=== PATIENT | male | born 1970 | race Caucasian/White ===

== ENCOUNTER 2019-07-13 15:27 | Observation (INO) | payer OTHER, SELFPAY ==
[2019-07-13] VITALS (9 sets, daily range): BP systolic 136–210; BP diastolic 24–127; PULSE 70–98; RESP 17–24; TEMP 36.3–37.2; O2SAT 94–98; BMI 29.2; BMI 30.5
--- NOTE | 2019-07-13 15:32 | ED.RN ---
CALLED FOR EKG IN TRIAGE
--- NOTE | 2019-07-13 15:55 | EKG12_ITS ---
Test Reason : CP Blood Pressure : / mmHG Vent. Rate : 083 BPM Atrial Rate : 083 BPM P-R Int : 160 ms QRS Dur : 122 ms QT Int : 350 ms P-R-T Axes : 023 086 033 degrees QTc Int : 411 ms Normal sinus rhythm RSR' or QR pattern in V1 suggests right ventricular conduction delay Left ventricular hypertrophy with QRS widening Abnormal ECG Confirmed by MERARI MAN, EMELI ([id number]), clinical editor STONEY LOPEZ ([id number]) on 07/16/2019 10:53:35 AM Referred By: Naga Prieto Confirmed By:EMELI GAGE MD
--- NOTE | 2019-07-13 15:55 | RAD_ITS ---
STUDY: X-RAY CHEST REASON FOR EXAM: Male, 48 years old. Left chest pain TECHNIQUE: AP portable COMPARISON: None. FINDINGS: There is mild discoid atelectasis in left lower lobe and minor scarring or atelectasis at the right base.. There is no demonstrated pleural abnormality. Normal size heart. Normal mediastinum and tony. Normal visualized pulmonary arteries. Normal visualized aortic arch and descending thoracic aorta. Normal visualized thoracic spine. Normal visualized ribs, clavicles, and shoulders. There is no demonstrated abnormality of the visualized soft tissue structures of the upper abdomen. RAD/Chest 1 View (Portable) IMPRESSION: Discoid atelectasis in left lower lobe and minor scarring or atelectasis at the right base Electronically Signed: Jose Hayes MD at 16:38 EDT , Service support ,
--- NOTE | 2019-07-13 15:58 | ED.DCSUM_ITS ---
- ER Visit Summary Date of Service: 07/13/19 Chief Complaint: Chest pain History of Present Illness: The patient is a 48 M presenting with chest pain. Patient has had intermittent chest pain throughout the week. He states today it got much worse. He states it is worsened with exertion and deep breathing. He has associated shortness of breath, diaphoresis. He denies nausea or vomiting. He denies injury. Denies PE/DVT risk factors. He is a smoker, denies other CAD risk factors. No other complaints. Physical Examination: Blood pressure one 210/127. Patient is afebrile. Alert no acute distress. HEENT exam is unremarkable. Neck is supple. Lungs are clear and equal bilaterally. Chest is nontender. Heart is regular rate and rhythm. Abdomen is soft nontender nondistended. Extremities are unremarkable. Skin is warm and dry. No focal neurologic deficit. Remainder of exam is unremarkable. Emergency Department Course and Treatment: Patient was given aspirin, morphine, Zofran. EKG is sinus rate of 83 with LVH. Chest x-ray shows discoid atelectasis in left lower lobe and minor scarring or atelectasis at the right base. CBC normal except for hemoglobin 18.5. Chemistries normal except for glucose 216. Troponin is negative. D-dimer negative. Patient is resting comfortably on reevaluation. Discussed with the hospitalist for observation. Disposition: Observation Impression: Chest pain This note was generated with [employer] dictation software. It may contain incorrect words, spelling, and punctuation that were not noted in review of the chart prior to signing ED Disposition - Plan for ED Patient: Referrals: Tiffanie Tubbs [Primary Care Provider] -
--- NOTE | 2019-07-13 16:16 | NURSING ---
NO OLD EKGS
[2019-07-13 16:20] LABS: Absolute Neutrophil Count 5.9 X10^3/uL (2.0-7.7); Basophil# 0.07 X10^3/uL; Basophil% 0.7 % (0-1); Eosinophils% 2.1 % (0-5); Hematocrit 51.8 % (40-54); Mean Corp Hgb Conc 35.7 g/dL (32-36); Mean Corpuscular Hgb 35.8 pg (27.0-32.0); Mean Corpuscular Volume 100.2 fL (80-94); Mean Platelet Vol. 9.2 fl (6.2-12.0); Monocyte# 0.75 X10^3/uL; Monocyte% 7.8 % (0-10); NRBC Flagged by Analyzer 0 % (0-5); Neutrophil # 5.86 X10^3/uL (2.7-7.7); Neutrophil % 60.9 % (47-70); Platelet Count 207 K/mm3 (150-450); RBC Distribution Width CV 11.4 % (11.6-14.6); RBC Distribution Width SD 42.5 fl (35.1-43.9); Red Blood Count 5.17 M/mm3 (4.6-6.2); White Blood Count 9.6 K/mm3 (4.4-11.0)
[2019-07-13] MEDS: Morphine 4 MG/ML Syringe IV (16:27)
[2019-07-13] MEDS: Aspirin 81 MG TAB.CHEW 324 MG PO (16:27)
[2019-07-13] MEDS: Ondansetron 4 MG/2 ML Vial IV (16:27)
[2019-07-13 16:30] LABS: Differential Indicated SCAN CRITERIA MET; POSITIVE COUNT NO; POSITIVE DIFFERENTIAL NO; POSITIVE MORPHOLOGY NO
--- NOTE | 2019-07-13 16:35 | ED.RN ---
LAB CALLS WITH CRITICAL RESULT, HMG 18.5, DR. DÍAZ MADE AWARE.
[2019-07-13 16:41] LABS: Anion Gap 7 (5-15); BUN 8 mg/dL (7-18); BUN/Creat Ratio 10.3 RATIO (10-20); Calcium,Total 9.3 mg/dL (8.5-10.1); Chloride 104 mmol/L (98-107); Creatinine, Serum 0.78 mg/dL (0.70-1.30); EST Glomerular Filtration Rate 114 mL/min (>60); Est Glom Filt Rate - Afr Amer 138 mL/min (>60); Glucose 216 mg/dL (74-106); Potassium 3.8 mmol/L (3.5-5.1); Sodium Level 136 mmol/L (136-145)
[2019-07-13 17:04] LABS: Anisocytosis 1+; Macrocytosis 1+; Platelet Estimate ADEQUATE (ADEQ); Red Cell Morphology N CHROM NORMAL (NORM C&C)
--- NOTE | 2019-07-13 17:06 | NURSING ---
KEVINU OBS HELEN STROUD
[2019-07-13 17:24] LABS: Hemoglobin 18.5 g/dL (13.0-16.5)
--- NOTE | 2019-07-13 17:28 | PCM.HP.STD ---
Problem List (1) Chest pain Status: Acute (2) HTN (hypertension) Status: Chronic (3) Diabetes Status: Chronic Qualifiers: Diabetes mellitus type: type 2 (4) Nicotine abuse Status: Chronic History of Present Illness Date of Admission: 07/13/19 Chief Complaint: chest pain The patient is a 48 year old M who has no active medical diagnoses who does not regularly see a physician, who smokes about 1 ppd and drinks about 6 beers per day who presented to the ER with c/o chest pain. This began about a week ago and he states he has been constant since then. It is a left sided sharp pain that is located at the level of the lowest rib. He drives most of the day and has noticed it when he gets in and out of the car, when he turns his body, and when he takes a deep breath. He also has reflux for which he has been taking prilosec that is worse with eating and sometimes causes vomiting. He denies SOB, diaphoresis, radiation, LH/Dizziness. He denies immediate fm hx of coronary disease. In the ER his blood sugar is siginficantly elevated at 216, BP is elevated highest was 210/127. D dimer was negative, troponin was negative, EKG was negative, and CXR was negative. He plans to stay overnight for a stress test in the AM. [] Past Medical History Past Medical History (Chronic Problems): Chronic Problems HTN (hypertension) (Chronic) Diabetes (Chronic) Nicotine abuse (Chronic) Allergies Penicillins Allergy (Verified 07/13/19 15:30) Unknown Home Medications: Ambulatory Orders Medication Instructions Recorded Omeprazole [Prilosec] 20 mg PO DAILY 07/13/19 Surgical History: no surgical history Psychiatric History: No pertinent psych hx Lives: Spouse/ Significant Other Smoking Status: Current every day smoker Tobacco Use: Cigarettes Alcohol: Heavy Drugs: None - *Family History Maternal History Items: No pertinent history Paternal History Items: - - suicide Review of Systems Constitutional: Denies: Chills, Fever, Weight Change HEENT: Denies: Head Aches, Sinus Congestion, Sinus Drainage Cardiovascular: Reports: Chest Pain. Denies: Chest Pressure, Chest Tightness, Edema, Heaviness, Light Headedness, Palpitations, Syncope Respiratory: Denies: Cough, Shortness of breath at rest, Sputum production Gastrointestinal: Denies: Abdominal Pain, Nausea, Vomiting Genitourinary: Denies: Dysuria Musculoskeletal: Denies: Joint Pain, Joint Tenderness Skin: Denies: Rash, Wounds Neurological: Denies: Numbness, Tingling, Focal weakness Psychiatric: Denies: Anxiety, Depression, Homicidal Ideations, Suicidal Ideations Hematologic/ Lymphatic: Denies: Easy Bruising, Easy Bleeding VTE Information - Inpt Only VTE Present on Admission: No VTE Mechan Device Prophylaxis: None VTE Pharm Prophylaxis ordered?: Yes Patient Problems: Active and Suspected Problems Chest pain (Acute) - Physical Exam Vitals/I&O's: Vital Signs Temp Pulse Resp BP Pulse Ox 98.9 F 89 19 H 168/114 H 95 07/13/19 17:20 07/13/19 17:21 07/13/19 17:21 07/13/19 17:21 07/13/19 17:21 Oxygen Flow Rate (L/min) 2 Oxygen Delivery Method Room Air Weight: 210 lb Body Mass Index (BMI) 29.2 General: Alert, Oriented x3, Cooperative HEENT: Atraumatic, PERRLA, EOMI, Normocephalic Neck: Supple, No JVD, Negative Carotid Bruits Lungs: Clear to auscultation, Normal air movement Cardiovascular: Regular rate, No murmurs Abdomen: Bowel Sounds Present, Soft, Non Tender Extremities: No edema, Capillary Refill Less than 3 Seconds Skin: No rashes, No breakdown Musculoskeletal: No Tenderness to Palpation of Joints or Extremities Neurological: Cranial nerves II-XII grossly intact Psych/Mental Status: Normal Affect, Appropriate Laboratory Results 07/13/19 16:10: WBC 9.6, RBC 5.17, Hgb 18.5 H*, Hct 51.8, MCV 100.2 H, MCH 35.8 H, MCHC 35.7, RDW Std Deviation 42.5, RDW Coeff of Do 11.4 L, Plt Count 207, MPV 9.2, Immature Gran % (Auto) 0.500, Neut % (Auto) 60.9, Lymph % (Auto) 28.0, [place] % (Auto) 7.8, Eos % (Auto) 2.1, Baso % (Auto) 0.7, Absolute Neuts (auto) 5.9, Absolute Lymphs (auto) 2.70, Nucleated RBC % 0, Diff Path Review May foll, Platelet Estimate ADEQUATE, RBC Morphology N CHROM, Anisocytosis 1+, Macrocytosis 1+ 07/13/19 16:10: D-Dimer Quant (PE/DVT) 0.30 07/13/19 16:10: Sodium 136, Potassium 3.8, Chloride 104, Carbon Dioxide 25.0, Anion Gap 7, BUN 8, Creatinine 0.78, Estim Creat Clear Calc 124.70, Est GFR (MDRD) Af Amer 138, Est GFR (MDRD) Non-Af 114, BUN/Creatinine Ratio 10.3, Glucose 216 H, Calcium 9.3, Troponin I < 0.015 Assessment/Plan All Active Problems Chest pain (Acute) 1. Chest pain - negative trop, ekg, chest xray, d dimer. Risk factors include untreated HTN, probably DMt2, and smoking. Pain is atypical however, and he does have confounding symptoms of GERD/gastritis that he has lately been taking prilosec for. Also his pain is more pleuritic, and constant for a week, however there is no troponin elevation. -AM stress test -cycle enzymes -start aspirin -check morning FLP -AM EKG 2. HTN - started on zestoretic 3. Likely DMt2 - check a1c, start metformin, SSI now 4. Likely GERD by history - taking prilosec at home - protonix whil ehere. 5. Nicotine abuse - smokes 1 ppd. Patch ordered. 6. Drinks 6 beers per day - will have beer with dinner while here. 7. Elevated Hgb - likely 2/2 smoking. DVT ppx: lovenox This patient was seen by Dayron Knox PA-C under the supervision of Dr. Prieto.
--- NOTE | 2019-07-13 17:46 | EKG12_ITS ---
Test Reason : CP ADMISSION Blood Pressure : / mmHG Vent. Rate : 066 BPM Atrial Rate : 066 BPM P-R Int : 166 ms QRS Dur : 124 ms QT Int : 376 ms P-R-T Axes : 020 081 026 degrees QTc Int : 394 ms Normal sinus rhythm Right bundle branch block Abnormal ECG When compared with ECG of 13-JUL-2019 15:35, MANUAL COMPARISON REQUIRED, DATA IS UNCONFIRMED Confirmed by MERARI MAN, EMELI ([id number]), field map editor STONEY LOPEZ ([id number]) on 07/16/2019 11:35:06 AM Referred By: Naga Prieto Confirmed By:EMELI GAGE MD
[2019-07-13 18:10] LABS: Bedside Glucose 179 mg/dL (70-110)
[2019-07-13 19:02] LABS: Hemoglobin A1c 9.5 % (4.2-6.3)
[2019-07-13] MEDS: amLODIPine 5 MG Tablet PO (19:07)
[2019-07-13] MEDS: hydroCHLOROthiazide 12.5mg 12.5 MG PO (20:52)
[2019-07-13] MEDS: Lisinopril 20 MG Tablet PO (20:53)
[2019-07-13] MEDS: HYDROcodone Bitartrate/Apap 5/325 Tablet PO (20:53)
[2019-07-13] MEDS: Insulin Lispro 100 UNIT/ML INSULN.PEN SC (21:07)
[2019-07-13 22:25] LABS: Bedside Glucose 265 mg/dL (70-110)
[2019-07-13 22:46] LABS: Bedside Glucose 261 mg/dL (70-110)
--- NOTE | 2019-07-14 00:32 | NURSING ---
Nicotine patch removed.
[2019-07-14 02:45] VITALS: BP 114/73; PULSE 68; RESP 18; TEMP 36.6; O2SAT 96
[2019-07-14 03:00] VITALS: PULSE 65
--- NOTE | 2019-07-14 05:55 | EKG12_ITS ---
Test Reason : AM EKG Blood Pressure : / mmHG Vent. Rate : 061 BPM Atrial Rate : 061 BPM P-R Int : 182 ms QRS Dur : 126 ms QT Int : 400 ms P-R-T Axes : -02 087 047 degrees QTc Int : 402 ms Normal sinus rhythm Right bundle branch block Abnormal ECG When compared with ECG of 13-JUL-2019 17:55, MANUAL COMPARISON REQUIRED, DATA IS UNCONFIRMED Confirmed by MERARI MAN, EMELI ([id number]), art editor STONEY LOPEZ ([id number]) on 07/16/2019 11:33:45 AM Referred By: Naga Prieto Confirmed By:EMELI GAGE MD
[2019-07-14 06:16] VITALS: BP 141/91; PULSE 61; RESP 20; TEMP 36.7; O2SAT 92
[2019-07-14] MEDS: Lisinopril 20 MG Tablet PO (06:26)
[2019-07-14 06:35] LABS: Bedside Glucose 208 mg/dL (70-110)
[2019-07-14 07:08] VITALS: PULSE 60
[2019-07-14 10:47] VITALS: BP 126/80; PULSE 83; RESP 18; TEMP 36.9; O2SAT 94
[2019-07-14] MEDS: Pantoprazole Sodium 20 MG Tablet PO (10:51)
[2019-07-14] MEDS: metFORMIN (XR) 500 MG Tablet PO (10:51)
[2019-07-14] MEDS: hydroCHLOROthiazide 12.5mg 12.5 MG PO (10:51)
[2019-07-14 11:06] LABS: Bedside Glucose 210 mg/dL (70-110)
--- NOTE | 2019-07-14 11:27 | CASEMGMT ---
SW met w/pt and in room. SW spoke w/pt about new diagnosis of diabetes and alcohol use. Pt states he is going to have to learn a new lifestyle, new way to eat, doing blood sugars, etc. Support offered. SW was able to give pt and a list of endocrinologists close to where they live off of their insurance website. Pt plans to follow up w/'s PCP. SW also spoke w/pt about alcohol use. Pt states he just drinks to sleep, states they gave pt two beers while here in the hospital yesterday. Pt states he does not drink during the day. Pt does not identify his alcohol use as a problem for which he needs assist. SW suggested to pt to speak w/PCP about other options to help w/sleep, as it may be difficult to regulate blood sugars when drinking. Pt states understanding. No further needs are anticipated, though SW remains available should any needs arise. KADI Murray
[2019-07-14 12:50] LABS: Pathologist Review Reviewed
[2019-07-14 15:28] VITALS: PULSE 65
--- NOTE | 2019-07-14 15:58 | STRESSREP ---
Stress Test Report Date: 07/14/2019 Procedure: Exercise tolerance test/imaging study Indications: Chest pain Consent: Per the patient Procedure: The patient exercised on a Wilmer protocol for 9 minutes achieving a peak heart rate of 155 bpm (89 % predicted maximal heart rate) with a peak blood pressure 194/100 mmHg and a peak MET capacity of 10.1 METs. The baseline ECG demonstrated normal sinus rhythm, incomplete right bundle branch block. The peak exercise ECG demonstrated no significant ischemic changes. EKG during recovery revealed no significant ischemic changes [There were no cardiac dysrhythmias pretest, during exercise, or recovery]. The functional capacity was considered normal for age. There was [no complaint of chest discomfort during exercise or recovery]. The examination was discontinued secondary to shortness of breath. Impression: 1. Technically adequate (percent predicted maximal heart rate greater than 85%) exercise tolerance test 2. Stress test is negative for exercise-induced EKG changes of ischemia 3. The test test is negative for exercise-induced chest pain 4. Functional capacity is normal for age 5. Nuclear images pending Myocardial perfusion imaging study: Technique: The patient was injected with 13.5 mCi of technetium 99m Cardiolite and subsequently rest SPECT Cardiolite nuclear imaging was obtained in the horizontal long, vertical long, and short axis views. The patient exercised on a Wilmer protocol. Please see above for details. The patient was injected with 40 mCi of technetium 99m Cardiolite and subsequently stress SPECT Cardiolite nuclear imaging was obtained in the horizontal long, vertical long, and short axis views. A gated Cardiolite study at peak stress was obtained. Interpretation: Rest and stress SPECT Cardiolite nuclear imaging status post realignment, normalization, and attenuation correction, demonstrates overall normal myocardial radioisotope uptake. The gated Cardiolite study demonstrates no significant regional wall motion abnormalities. The reported LVEF is 60 %. Impression: 1. There is no evidence of significant ischemia or infarction. 2. The gated Cardiolite study reports an LVEF of 60 %. This note was generated with [employer] software. It may contain incorrect words, spelling, and punctuation that were not noted in checking the note before signing.
--- NOTE | 2019-07-14 15:59 | DCINST_ITS ---
- Discharge Diagnoses Current Active Problems: Current Active and Chronic Problems Chest pain (Acute) HTN (hypertension) (Chronic) Diabetes (Chronic) Nicotine abuse (Chronic) You will use the following diet at home:: Calorie/Carbohydrate Controlled (specify 1200, 1400, etc) - 1800 jose/day, Cardiac Your food should be the consistency of: Regular Your liquids should be the consistency of: Regular/Thin Discharge Activity: Return to Normal Activity Allergies/Adverse Reactions: Allergies bee venom protein (honey bee) Allergy (Verified 07/13/19 17:45) Swelling Penicillins Allergy (Verified 07/13/19 15:30) Unknown Medications to take at Discharge Lisinopril [Zestril] 20 mg PO DAILY #30 tab 07/14/19 Omeprazole [Prilosec] 20 mg PO DAILY #30 cap 07/14/19 hydroCHLOROthiazide [Hydrochlorothiazide] 12.5 mg PO DAILY #30 cap 07/14/19 metFORMIN (XR) [Glucophage Xr] 500 mg PO BIDCM #60 tab 07/14/19 The following prescriptions were given: metFORMIN (XR) [Glucophage Xr] 500 mg PO BIDCM #60 tab Transmission Status: Pending to [facility] hydroCHLOROthiazide [Hydrochlorothiazide] 12.5 mg PO DAILY #30 cap Transmission Status: Pending to [facility] Omeprazole [Prilosec] 20 mg PO DAILY #30 cap Transmission Status: Pending to [facility] Lisinopril [Zestril] 20 mg PO DAILY #30 tab Transmission Status: Pending to [facility] Primary Care Physician: Tiffanie Tubbs [Primary Care Provider] - Please follow up with your Primary Care Physician in: 1 week Test Results: Test results from this visit will be discussed in further detail at your follow- up appointment, if applicable. Proposed Discharge Date: 07/14/19
--- NOTE | 2019-07-14 16:00 | DS.PCM_ITS ---
<Dayron Knox - Last Filed: 07/14/19 16:00> Discharge Date and Diagnosis - Problem List Patient Problems: Active and Suspected Problems Chest pain (Acute) Date of Admission: 07/13/19 Date of Discharge: 07/14/19 - Primary Discharge Diagnosis Active and Suspected Problems Chest pain (Acute) - musculoskeletal DMt2 - new dx HTN Obesity GERD Nicotine abuse - Secondary Discharge Diagnosis Chronic Problems HTN (hypertension) (Chronic) Diabetes (Chronic) Nicotine abuse (Chronic) Hospital Course and Treatment Imaging Results: RAD/Chest 1 View (Portable) IMPRESSION: Discoid atelectasis in left lower lobe and minor scarring or atelectasis at the right base Operations: None Procedures: Stress test Summary of Care Provided: Hospital Course: The patient is a 48 year old M with pmhx of heavy smoking, drinker 6 beers per day, GERD, and no routine health care, who presented to the ER with c/o chest pain. This was described as a sharp left lower chest pain that was worth with certain movements like rotation and deep breathing. In the ER his BP was markedly elevated at 210/127, troponin was negative, CXR showed scarring/atelectasis, and EKG showed RBBB. Hgb was elevated at 18.5 felt to be 2/2 smoking. His blood sugar was markedly elevated at 216 as well. He was admitted with concerns for chest pain. He was placed in the PCU overnight on tele. No events on tele. Troponin was negative x3. D dimer was negative. Repeat EKGs showed no acute change. He had a stress test the following day that was negative. His pain was felt to be pleuritic/musculoskeletal. A1C was checked and was 9.5. He was started on metformin. He was provided with a chromosomal disorders counselor evaluation for his new diabetes dx. He was started on HCTZ and lisinopril for his BP with good response. He was discharged home in stable condition and advised to have close follow up with his PCP. I have also provided an rx for a glucometer/lancets/strips/swabs as well. He needs complete smoking cessation, and to decrease his number of alcoholic drinks per day. This patient was seen by Dayron Knox PA-C under the supervision of Dr. Lr. [] Patient Problems: Active and Suspected Problems Chest pain (Acute) - Physical Exam Vitals/I&O's: Vital Signs Temp Pulse Resp BP Pulse Ox 98.5 F 65 18 126/80 H 94 07/14/19 10:47 07/14/19 15:28 07/14/19 10:47 07/14/19 10:47 07/14/19 10:47 Oxygen Flow Rate (L/min) 2 Oxygen Delivery Method Room Air Weight: 219 lb 0.009 oz Body Mass Index (BMI) 30.5 Intake and Output for Last 24 Hours 07/12/19 07/13/19 07/14/19 23:59 23:59 23:59 Intake Total 220 / 220 360 / 360 Balance 220 / 220 360 / 360 General: Alert, Oriented x3, Cooperative HEENT: Atraumatic, PERRLA, EOMI, Normocephalic Neck: Supple, No JVD, Negative Carotid Bruits Lungs: Clear to auscultation, Normal air movement Cardiovascular: Regular rate, No murmurs Abdomen: Bowel Sounds Present, Soft, Non Tender Extremities: No edema, Capillary Refill Less than 3 Seconds Skin: No rashes, No breakdown Musculoskeletal: No Tenderness to Palpation of Joints or Extremities Neurological: Cranial nerves II-XII grossly intact Psych/Mental Status: Normal Affect, Appropriate Laboratory Results 07/13/19 16:10: WBC 9.6, RBC 5.17, Hgb 18.5 H*, Hct 51.8, MCV 100.2 H, MCH 35.8 H, MCHC 35.7, RDW Std Deviation 42.5, RDW Coeff of Do 11.4 L, Plt Count 207, MPV 9.2, Immature Gran % (Auto) 0.500, Neut % (Auto) 60.9, Lymph % (Auto) 28.0, Garrett % (Auto) 7.8, Eos % (Auto) 2.1, Baso % (Auto) 0.7, Absolute Neuts (auto) 5.9, Absolute Lymphs (auto) 2.70, Nucleated RBC % 0, Diff Path Review Reviewed, Platelet Estimate ADEQUATE, RBC Morphology N CHROM, Anisocytosis 1+, Macrocytosis 1+ 07/13/19 16:10: D-Dimer Quant (PE/DVT) 0.30 07/13/19 16:10: Sodium 136, Potassium 3.8, Chloride 104, Carbon Dioxide 25.0, Anion Gap 7, BUN 8, Creatinine 0.78, Estim Creat Clear Calc 124.70, Est GFR ( MDRD) Af Amer 138, Est GFR (MDRD) Non-Af 114, BUN/Creatinine Ratio 10.3, Glucose 216 H, Calcium 9.3, Troponin I < 0.015 07/13/19 16:10: Hemoglobin A1c 9.5 H 07/13/19 18:01: POC Glucose 179 H 07/13/19 18:48: Troponin I < 0.015 07/13/19 20:57: POC Glucose 265 H 07/13/19 22:14: Troponin I < 0.015 07/13/19 22:37: POC Glucose 261 H 07/14/19 06:30: POC Glucose 208 H 07/14/19 10:59: POC Glucose 210 H Current Medications Hydrocodone Bitart/Acetaminophen ([place] 5mg-325mg) 2 tablet PO Q6H PRN PRN PRN Reason: Pain Score 4-5/10 Last Admin: 07/13/19 20:53 Dose: 2 tablet Documented by: Dextrose (D50w Syringe) 0 gm IV X1 PRN; Protocol PRN Reason: Hypoglycemia Glucagon () 1 mg IM .X1 PRN PRN Reason: Hypoglycemia Hydrochlorothiazide () 12.5 mg PO DAILY [facility] Last Admin: 07/14/19 10:51 Dose: 12.5 mg Documented by: Sodium Chloride () 250 mls @ 15 mls/hr IV .[id number] PRN PRN Reason: Saline Flush Insulin Human Lispro (Humalog Kwikpen (Bkc)) 0 unit SC ACHS [facility]; Protocol Last Admin: 07/14/19 13:47 Dose: Not Given Documented by: Lisinopril (Zestril) 20 mg PO DAILY [facility] Last Admin: 07/14/19 06:26 Dose: 20 mg Documented by: [facility] Last Admin: 07/14/19 10:51 Dose: 500 mg Documented by: Morphine Sulfate () 4 mg IV Q3H PRN PRN PRN Reason: Pain Score 6-10/10 Ondansetron HCl (Zofran) 4 mg IV Q6H PRN PRN PRN Reason: NAUSEA/VOMITING Pantoprazole Sodium (Protonix) 20 mg PO DAILY [facility] Last Admin: 07/14/19 10:51 Dose: 20 mg Documented by: Sodium Chloride () 10 ml IV UD PRN PRN Reason: SALINE FLUSH Discharge Diet: Low fat/ Low Cholesterol, 1800 Calorie Control Diet, 2000 mg Sodium Diet Discharge Activity: Return to Normal Activity Home Medications: Medications to take at Discharge Lisinopril [Zestril] 20 mg PO DAILY #30 tab 07/14/19 Omeprazole [Prilosec] 20 mg PO DAILY #30 cap 07/14/19 hydroCHLOROthiazide [Hydrochlorothiazide] 12.5 mg PO DAILY #30 cap 07/14/19 metFORMIN (XR) [Glucophage Xr] 500 mg PO BIDCM #60 tab 07/14/19 Following Prescrptions Were Given to Patient: metFORMIN (XR) [Glucophage Xr] 500 mg PO BIDCM #60 tab Transmission Status: Received by [facility] hydroCHLOROthiazide [Hydrochlorothiazide] 12.5 mg PO DAILY #30 cap Transmission Status: Received by [facility] Omeprazole [Prilosec] 20 mg PO DAILY #30 cap Transmission Status: Received by [facility] Lisinopril [Zestril] 20 mg PO DAILY #30 tab Transmission Status: Received by [facility] Other Amb Orders: Glucometer Location: None Selected Primary Care Physician: Tiffanie Tubbs [Primary Care Provider] - Please follow up with your Primary Care Physician in: 1 week Additional Instructions: daily glucometry. Disposition: Home Minutes spent on discharge:: 35 Patient Condition:: Stable Medical Necessity - Tobacco Use Smoking Status: Current every day smoker Tobacco Use: Cigarettes Meaningful Use Info Meaningful Use Diagnoses (Choose all that apply): None applicable <Arun Lr - Last Filed: 07/14/19 16:22> Discharge Date and Diagnosis - Primary Discharge Diagnosis Active and Suspected Problems Chest pain (Acute) - Secondary Discharge Diagnosis Chronic Problems HTN (hypertension) (Chronic) Diabetes (Chronic) Nicotine abuse (Chronic) Hospital Course and Treatment Summary of Care Provided: This patient was seen in conjunction with Dayron Knox PA-C . I have independently interviewed and examined the patient and reviewed pertinent historical, laboratory, and other data. Please refer to Dayron Knox PA-C note for details of this patient's presentation, findings, and recommendations. I have reviewed Dayron Knox PA-C note and concur with documented findings. In brief, patient is a 48-year-old gentleman who presented with chest pain found to have elevated blood glucose level consistent with new onset diabetes as well as elevated blood pressure. He was placed on a monitored bed underwent a nuclear stress test which was negative for stress-induced ischemia Assessment: 1. Chest pain negative stress test 2. New onset diabetes mellitus type 2 with A1c of 9.5 3. Essential hypertension 4. Tobacco dependence 5. GERD 6. BMI of 30.5 Hospital course: As documented above - Physical Exam Vitals/I&O's: Vital Signs Temp Pulse Resp BP Pulse Ox 98.5 F 65 18 126/80 H 94 07/14/19 10:47 07/14/19 15:28 07/14/19 10:47 07/14/19 10:47 07/14/19 10:47 Oxygen Flow Rate (L/min) 2 Oxygen Delivery Method Room Air Weight: 99.337 kg Body Mass Index (BMI) 30.5 Intake and Output for Last 24 Hours 07/12/19 07/13/19 07/14/19 23:59 23:59 23:59 Intake Total 220 / 220 360 / 360 Balance 220 / 220 360 / 360 Laboratory Results 07/13/19 16:10: WBC 9.6, RBC 5.17, Hgb 18.5 H*, Hct 51.8, MCV 100.2 H, MCH 35.8 H, MCHC 35.7, RDW Std Deviation 42.5, RDW Coeff of Do 11.4 L, Plt Count 207, MPV 9.2, Immature Gran % (Auto) 0.500, Neut % (Auto) 60.9, Lymph % (Auto) 28.0, Garrett % (Auto) 7.8, Eos % (Auto) 2.1, Baso % (Auto) 0.7, Absolute Neuts (auto) 5.9, Absolute Lymphs (auto) 2.70, Nucleated RBC % 0, Diff Path Review Reviewed, Platelet Estimate ADEQUATE, RBC Morphology N CHROM, Anisocytosis 1+, Macrocytosis 1+ 07/13/19 16:10: D-Dimer Quant (PE/DVT) 0.30 07/13/19 16:10: Sodium 136, Potassium 3.8, Chloride 104, Carbon Dioxide 25.0, Anion Gap 7, BUN 8, Creatinine 0.78, Estim Creat Clear Calc 124.70, Est GFR (MDRD) Af Amer 138, Est GFR (MDRD) Non-Af 114, BUN/Creatinine Ratio 10.3, Gl ucose 216 H, Calcium 9.3, Troponin I < 0.015 07/13/19 16:10: Hemoglobin A1c 9.5 H 07/13/19 18:01: POC Glucose 179 H 07/13/19 18:48: Troponin I < 0.015 07/13/19 20:57: POC Glucose 265 H 07/13/19 22:14: Troponin I < 0.015 07/13/19 22:37: POC Glucose 261 H 07/14/19 06:30: POC Glucose 208 H 07/14/19 10:59: POC Glucose 210 H Current Medications Hydrocodone Bitart/Acetaminophen ([place] 5mg-325mg) 2 tablet PO Q6H PRN PRN PRN Reason: Pain Score 4-5/10 Last Admin: 07/13/19 20:53 Dose: 2 tablet Documented by: Dextrose (D50w Syringe) 0 gm IV X1 PRN; Protocol PRN Reason: Hypoglycemia Glucagon () 1 mg IM .X1 PRN PRN Reason: Hypoglycemia Hydrochlorothiazide () 12.5 mg PO DAILY [facility] Last Admin: 07/14/19 10:51 Dose: 12.5 mg Documented by: Sodium Chloride () 250 mls @ 15 mls/hr IV .[id number] PRN PRN Reason: Saline Flush Insulin Human Lispro (Humalog Kwikpen (Bkc)) 0 unit SC ACHS [facility]; Protocol Last Admin: 07/14/19 13:47 Dose: Not Given Documented by: Lisinopril (Zestril) 20 mg PO DAILY [facility] Last Admin: 07/14/19 06:26 Dose: 20 mg Documented by: Metformin HCl (Glucophage Xr) 500 mg PO BIDCM [facility] Last Admin: 07/14/19 10:51 Dose: 500 mg Documented by: Morphine Sulfate () 4 mg IV Q3H PRN PRN PRN Reason: Pain Score 6-10/10 Ondansetron HCl (Zofran) 4 mg IV Q6H PRN PRN PRN Reason: NAUSEA/VOMITING Pantoprazole Sodium (Protonix) 20 mg PO DAILY [facility] Last Admin: 07/14/19 10:51 Dose: 20 mg Documented by: Sodium Chloride () 10 ml IV UD PRN PRN Reason: SALINE FLUSH Code Visit OBSV E&M: 17101 Observation care discharge
== END 2019-07-14 16:00 | disposition home or self-care (01) ==
LOC: ED 16:27 → PCU 17:40
PROVIDERS: Admitting Provider Internal Medicine; Emergency Provider Emergency Medicine; Family Provider Family Medicine; PCP Family Medicine; Referring Provider Internal Medicine; Visit Provider Internal Medicine
DX: R07.89 Other chest pain (principal); R06.02 Shortness of breath; I10 Essential (primary) hypertension; E11.9 Type 2 diabetes mellitus without complications; F17.210 Nicotine dependence, cigarettes, uncomplicated; K21.9 Gastro-esophageal reflux disease without esophagitis; E66.9 Obesity, unspecified; Z68.30 Body mass index [BMI] 30.0-30.9, adult; Z91.19 Patient's noncompliance with other medical treatment and regimen; Z71.3 Dietary counseling and surveillance; Z79.899 Other long term (current) drug therapy
CPT/HCPCS: 36415; 71045; 78452; 80048; 82962; 83036; 84484; 85025; 85379; 93005; 93017; 96374; 96375; 97802; 99218; 99285; 99406; A9500; J7050; A4216; G0378; J2405